=== PATIENT | female | born 1930 | race Caucasian/White ===

== ENCOUNTER 2020-01-28 18:40 | Emergency (ER) | payer MEDICARE, OTHER ==
[2020-01-28] MEDS ORDERED: traMADol HCl 50 MG TAB ONE (19:32)
--- NOTE | 2020-01-28 19:35 | RAD ---
FOUR VIEWS LEFT KNEE: Comparison: None History: Left knee pain after fall. FINDINGS: Four views of the left knee shows a comminuted fracture of the mid portion of the patella. Overlying soft tissue swelling is seen. A small knee effusion is present. No other fractures are seen. Calcific ations are seen in the menisci. IMPRESSION: Left patellar fracture. POS: EAA
[2020-01-28] MEDS ORDERED: Bacitracin 1 PK ONE (19:43)
== END 2020-01-28 20:04 | disposition home or self-care (01) ==
LOC: NAV ERS 18:40
DX: S82.042A Displaced comminuted fracture of left patella, initial encounter for closed fracture (principal); S51.812A Laceration without foreign body of left forearm, initial encounter; F41.9 Anxiety disorder, unspecified; F03.90 Unspecified dementia, unspecified severity, without behavioral disturbance, psychotic disturbance, mood disturbance, and anxiety; E03.9 Hypothyroidism, unspecified; I10 Essential (primary) hypertension; Z79.899 Other long term (current) drug therapy; W01.0XXA Fall on same level from slipping, tripping and stumbling without subsequent striking against object, initial encounter

== ENCOUNTER 2020-04-05 15:24 | Emergency (ER) | payer MEDICARE, OTHER ==
[2020-04-05] MEDS ORDERED: Morphine 2 MG/ML SYRINGE ONE (16:01)
--- NOTE | 2020-04-05 16:20 | RAD ---
Exam:2 views right hip HISTORY: Trauma. Fall. COMPARISON: None FINDINGS: Comminuted intertrochanteric fracture. IMPRESSION: Comminuted intertrochanteric fracture.
== END 2020-04-05 18:33 | disposition short-term general hospital (02) ==
LOC: NAV ERS 15:24
DX: S72.141A Displaced intertrochanteric fracture of right femur, initial encounter for closed fracture (principal); F41.9 Anxiety disorder, unspecified; E03.9 Hypothyroidism, unspecified; I10 Essential (primary) hypertension; F03.90 Unspecified dementia, unspecified severity, without behavioral disturbance, psychotic disturbance, mood disturbance, and anxiety; Z79.899 Other long term (current) drug therapy; W17.89XA Other fall from one level to another, initial encounter
CPT/HCPCS: 96372; J2270

== ENCOUNTER 2020-07-02 16:06 | Emergency (ER) | payer MEDICARE, OTHER ==
[2020-07-02] MEDS ORDERED: Ondansetron PF 4 MG/2 ML Vial ONE (16:35)
[2020-07-02] MEDS ORDERED: Morphine 4 MG/ML VIAL ONE (16:35)
[2020-07-02 16:59] LABS: INR-International Normal Ratio 1.1; PTT 31.3 sec (22.9-36.1); Prothrombin Time 14.4 sec (12.0-14.7)
[2020-07-02 17:02] LABS: #Basophils 0.1 thou/uL (0.0-0.2); #Lymphocytes 1.5 thou/uL (1.20-3.40); #Monocytes 0.6 thou/uL (0.11-0.59); %Basophils 1.7 % (0.0-1.0); %Eosinophils 0.9 % (0.0-10.0); %Lymphocytes 28.4 % (21.0-51.0); Hemoglobin 11.4 g/dL (12.0-16.0); Mean Corpuscular HGB CONC 32.7 g/dL (32.0-36.0); Mean Corpuscular Hemoglobin 32.2 pg (27.0-31.0); Mean Corpuscular Volume 98.5 fL (78.0-98.0); Mean Platelet Volume 5.9 fL (7.4-10.4); Platelet Count 316 thou/uL (130-400); RBC Distribution Width 13.1 % (11.5-14.5); Red Blood Cell (RBC) Count 3.54 mill/uL (4.20-5.40); White Blood Cell (WBC) Count 5.3 thou/uL (4.8-10.8)
[2020-07-02 17:05] LABS: ALT (SGPT) 11 U/L (8-55); AST (SGOT) 17 U/L (5-34); Albumin 3.5 g/dL (3.4-4.8); Alkaline Phosphatase 119 U/L (40-110); Anion Gap 16 mmol/L (10-20); BUN (Urea Nitrogen) 15 mg/dL (9.8-20.1); Bilirubin, Total 0.2 mg/dL (0.2-1.2); Calc. Creatinine Clearance 0 mL/min (70-130); Carbon Dioxide 23 mmol/L (23-31); Chloride 101 mmol/L (98-107); Estimated GFR-MDRD 76; Glucose 99 mg/dL (83-110); Potassium 3.9 mmol/L (3.5-5.1); Protein, Total 6.5 g/dL (6.0-8.3); Sodium 136 mmol/L (136-145)
--- NOTE | 2020-07-02 17:40 | RAD ---
SINGLE VIEW OF THE PELVIS: 07/02/20 HISTORY: Fall trying to get out of bed with pelvic pain. FINDINGS: Single view of the pelvis shows no evidence of acute fracture or dislocation. Hardware is seen in the proximal aspect of the right femur spanning a healed fracture. A small amount of heterotopic ossific ation surrounds the fracture site. Mild degenerative changes are seen in both hips. IMPRESSION: No evidence of acute osseous abnormality. POS: EAA
--- NOTE | 2020-07-02 17:41 | RAD ---
SINGLE VIEW OF THE CHEST: 07/02/20 HISTORY: Fall trying to get out of bed. FINDINGS: Single view of the chest shows the cardiomediastinal silhouette which is upper limits of normal in si ze. There is a small left pleural effusion with adjacent atelectasis. No right pleural effusion is se en. Degenerative changes are seen in the spine. IMPRESSION: Left pleural effusion with adjacent atelectasis. POS: EAA
--- NOTE | 2020-07-02 17:42 | RAD ---
TWO VIEWS OF THE RIGHT HIP: 07/02/20 COMPARISON: 04/05/20 HISTORY: Fall trying to get out of bed with hip pain. FINDINGS: Two views of the right hip shows hardware in the proximal femur spanning the previously seen fracture of the femur. The fracture appears healed and there is a moderate amount of heterotopic ossification surrounding the fracture site. Diffuse soft tissue swelling is seen. IMPRESSION: No evidence of acute osseous abnormality. POS: EAA
== END 2020-07-02 18:27 | disposition short-term general hospital (02) ==
LOC: NAV ERS 16:06
DX: S40.019A Contusion of unspecified shoulder, initial encounter (principal); S72.001D Fracture of unspecified part of neck of right femur, subsequent encounter for closed fracture with routine healing; I10 Essential (primary) hypertension; E03.9 Hypothyroidism, unspecified; F41.9 Anxiety disorder, unspecified; F03.90 Unspecified dementia, unspecified severity, without behavioral disturbance, psychotic disturbance, mood disturbance, and anxiety; Z79.82 Long term (current) use of aspirin; Z79.899 Other long term (current) drug therapy; W06.XXXA Fall from bed, initial encounter
CPT/HCPCS: 71045; 72170; 80053; 83605; 85025; 85610; 85730; 96374; 96375; J2270; J2405